=== PATIENT | female | born 1960 | race Caucasian/White ===

== ENCOUNTER 2017-08-29 17:19 | Observation (INO) ==
[2017-08-29 17:56] LABS: Basophils % 0.4 % (0.0-0.8); Eosinophils # 0.1 10*3/uL (0.0-0.87); Eosinophils % 1.1 % (0.00-10.9); Hematocrit 35.7 VOL% (35.7-47.0); Hemoglobin 12.1 GM/DL (12.0-16.0); Immature Granulocytes % 0.2 %; Immature Granulocytes Absolute 0.02 #; Lymphocytes # 2.3 10*3/uL (1.4-4.0); Lymphocytes % 28.1 % (21.3-54.2); Mean Corpuscular HGB Conc 33.9 GM/DL (32-36); Mean Corpuscular Hemoglobin 32 PG (27-34); Monocytes # 0.4 10*3/uL (0.11-0.8); Monocytes % 5.2 % (1.7-12.7); Neutrophils # 5.4 10*3/uL (1.4-7.4); Platelet Count 352 T/CUMM (130-400); Red Blood Count 3.84 MC/CUMM (3.8-5.5); White Blood Count 8.3 T/CUMM (4-12)
[2017-08-29] MEDS ORDERED: ALUM/MAG/SIMETH/LIDO VISC 1:1 30 ML BOTTLE PO STA (18:27)
[2017-08-29 18:36] LABS: Calcium 9.2 MG/DL (8.5-10.1); Osmolality,Calculated 279.5 MOS/KG (273-304); Potassium 3.8 MMOL/L (3.5-5.1)
[2017-08-29] MEDS ORDERED: ALUM/MAG/SIMETH/LIDO VISC 1:1 30 ML BOTTLE PO ONE (18:46)
[2017-08-29] MEDS ORDERED: PANTOPRAZOLE 40 MG VIAL IV STA (18:57)
[2017-08-29] MEDS ORDERED: KETOROLAC 30 MG/1 ML VIAL IV STA (18:57)
[2017-08-29] MEDS ORDERED: PANTOPRAZOLE 40 MG VIAL IV ONE (19:09)
[2017-08-29] MEDS ORDERED: KETOROLAC 30 MG/1 ML VIAL ONE (19:09)
[2017-08-29] MEDS ORDERED: ACETAMINOPHEN 325 MG TABLET PO PRN (22:52)
[2017-08-29] MEDS ORDERED: traMADol 50 MG TABLET PO PRN (22:52)
[2017-08-29] MEDS ORDERED: ONDANSETRON 4 MG/2 ML VIAL IV PRN (22:52)
[2017-08-29] MEDS: AMITRIPTYLINE 25 MG TABLET PO SCH (23:52)
[2017-08-29] MEDS: LORazepam 1 MG TABLET PO SCH (23:52)
[2017-08-29] MEDS: HYDROXYCHLOROQUINE 200 MG TABLET PO SCH (23:52)
[2017-08-29] MEDS: GABAPENTIN 400 MG CAPSULE PO SCH (23:52)
[2017-08-29] MEDS: ZALEPLON 5 MG CAPSULE PO PRN (23:52)
[2017-08-29] MEDS: ALUMINUM/MAGNES/SIMETH MAX STR 30 ML UDCUP PO SCH (23:52)
[2017-08-29] MEDS: SODIUM CHLORIDE 0.9% 1,000 ML IV SCH (23:53)
[2017-08-29] MEDS: valACYclovir 500 MG TABLET PO SCH (23:53)
[2017-08-30 05:55] LABS: Basophils % 0.3 % (0.0-0.8); Eosinophils # 0.1 10*3/uL (0.0-0.87); Eosinophils % 1.4 % (0.00-10.9); Hemoglobin 10.4 GM/DL (12.0-16.0); Immature Granulocytes % 0.3 %; Immature Granulocytes Absolute 0.02 #; Lymphocytes # 1.9 10*3/uL (1.4-4.0); Lymphocytes % 30.5 % (21.3-54.2); Mean Corpuscular HGB Conc 32.5 GM/DL (32-36); Mean Corpuscular Hemoglobin 31 PG (27-34); Mean Corpuscular Volume 95.5 FL (87-102); Mean Platelet Volume 10.6 FL (9.6-12.0); Monocytes # 0.6 10*3/uL (0.11-0.8); Monocytes % 8.8 % (1.7-12.7); Neutrophils # 3.7 10*3/uL (1.4-7.4); Neutrophils % 58.7 % (38.7-73.9); Platelet Count 282 T/CUMM (130-400); Red Blood Count 3.35 MC/CUMM (3.8-5.5); Red Cell Distribution Width 15.1 % (9.3-17.3); White Blood Count 6.4 T/CUMM (4-12)
[2017-08-30] MEDS: ALUMINUM/MAGNES/SIMETH MAX STR 30 ML UDCUP PO SCH ×4 (05:59→18:15)
[2017-08-30 06:34] LABS: Blood Urea Nitrogen 22 MG/DL (7-18); Calcium 8.7 MG/DL (8.5-10.1); Glucose 96 MG/DL (74-106); Osmolality,Calculated 281.4 MOS/KG (273-304); Potassium 3.9 MMOL/L (3.5-5.1); Sodium 140 MMOL/L (136-145); Troponin I Only < 0.015 NG/ML (0.00-0.045)
[2017-08-30 06:40] LABS: Risk Ratio 2.09; Thyroid Stimulating Hormone 2.18 uIU/ml (0.358-3.74); VLDL CHOLESTEROL 9.6 MG/DL
[2017-08-30] MEDS: ENOXAPARIN 40 MG/0.4 ML SYRINGE SUBCUT SCH (09:46)
[2017-08-30] MEDS: GABAPENTIN 400 MG CAPSULE PO SCH ×3 (12:43→21:07)
[2017-08-30] MEDS: PANTOPRAZOLE 40 MG TABLET PO SCH (12:43)
[2017-08-30] MEDS: LOSARTAN 50 MG TABLET PO SCH (12:43)
[2017-08-30] MEDS: MONTELUKAST 10 MG TABLET PO SCH (12:43)
[2017-08-30] MEDS: MAGNESIUM CHLORIDE 64 MG TABLET PO SCH (12:43)
[2017-08-30] MEDS: HYDROXYCHLOROQUINE 200 MG TABLET PO SCH ×2 (12:43→21:06)
[2017-08-30] MEDS: FUROSEMIDE 40 MG TABLET PO SCH (12:43)
[2017-08-30] MEDS: SPIRONOLACTONE 25 MG TABLET PO SCH (12:44)
[2017-08-30] MEDS: POTASSIUM CHLORIDE 10 MEQ TABLET PO SCH ×2 (12:44→21:06)
[2017-08-30] MEDS: LORazepam 1 MG TABLET PO SCH (12:51)
[2017-08-30] MEDS: valACYclovir 500 MG TABLET PO SCH (12:51)
[2017-08-30] MEDS: FLUTICASONE 50 MCG NASAL SPRAY 16 GM BOTTLE BOTH NARES SCH (12:51)
[2017-08-30] MEDS: SODIUM CHLORIDE 0.9% 1,000 ML IV SCH (16:51)
[2017-08-30] MEDS ORDERED: ASPIRIN EC 81 MG TABLET PO SCH (21:00)
[2017-08-30] MEDS ORDERED: ATORVASTATIN 10 MG TABLET PO SCH (21:00)
[2017-08-30] MEDS: ZALEPLON 5 MG CAPSULE PO PRN (21:06)
[2017-08-30] MEDS: AMITRIPTYLINE 25 MG TABLET PO SCH (21:06)
[2017-08-31] MEDS: SODIUM CHLORIDE 0.9% 1,000 ML IV SCH (11:21)
[2017-08-31] MEDS: HYDROXYCHLOROQUINE 200 MG TABLET PO SCH (11:23)
[2017-08-31] MEDS: LOSARTAN 50 MG TABLET PO SCH (11:23)
[2017-08-31] MEDS: MAGNESIUM CHLORIDE 64 MG TABLET PO SCH (11:23)
[2017-08-31] MEDS: POTASSIUM CHLORIDE 10 MEQ TABLET PO SCH (11:24)
[2017-08-31] MEDS: GABAPENTIN 400 MG CAPSULE PO SCH (11:24)
[2017-08-31] MEDS: FUROSEMIDE 40 MG TABLET PO SCH (11:24)
[2017-08-31] MEDS: PANTOPRAZOLE 40 MG TABLET PO SCH (11:24)
[2017-08-31] MEDS: MONTELUKAST 10 MG TABLET PO SCH (11:25)
[2017-08-31] MEDS: SPIRONOLACTONE 25 MG TABLET PO SCH (11:25)
[2017-08-31] MEDS: FLUTICASONE 50 MCG NASAL SPRAY 16 GM BOTTLE BOTH NARES SCH (11:26)
[2017-08-31] MEDS: ENOXAPARIN 40 MG/0.4 ML SYRINGE SUBCUT SCH (11:26)
[2017-08-31 13:09] VITALS: BP 129/74
== END 2017-08-31 13:45 | disposition home or self-care (01) ==
LOC: N.EDINP 17:19 → N.ED 17:19 → N.TELEN 20:52
PROVIDERS: ADMIT Internal Medicine; ATTEND Internal Medicine